=== PATIENT | male | born 1975 | race Caucasian/White ===

== ENCOUNTER → 2016-12-20 | Outpatient (CLI) | payer BC ==
--- NOTE | 2016-12-21 17:28 | CONS ---
REASON FOR CONSULTATION: Sleep apnea. This is a 41-year-old male patient coming in for sleep quality, increased snoring, loud snoring and increased sleepiness. His ypyosp-ry-qeh, Mr. Collins Matta, who has been taking him to various golfing trips, has noted that the patient has been snoring loudly and he has been having prolonged apneic events. As such, the possibility of sleep apnea was raised and he was referred to me. He goes to bed somewhere between 10:30 and 11 p.m., wakes up between 5:30 and 6: 30 a.m. in the morning. He averages around 5 to 6 hours of sleep at night. He is tired and fatigued during the day. He works in [place] at [employer] and he drives from [place] to [place] on a daily basis. He has never fallen asleep behind the wheel, yet he can easily fall asleep if he is sitting on the passenger side and staying inactive. During meetings and other day-to-day activities he stays awake, although he tried to fight his sleepiness. He has no substance abuse, no alcoholism. No excessive intake of caffeinated beverages. His weight has been fluctuating. More recently it is up by 30 to 35 pounds. He has been diagnosed having ADD, maintained on Ritalin for at least 8 years. He is on Lexapro for history of depression. No restlessness in the lower extremities. He has occasional grinding of the teeth. No nocturnal heartburn. No nocturnal shortness of breath. No other complaints otherwise. PAST MEDICAL HISTORY: 1. Obesity. 2. ADD. 3. Depression. SURGICAL HISTORY: Surgery on his head for fractured skull with subsequent revision. ALLERGIES: NOTE KNOWN. Outpatient medications include: 1. Ritalin SR 20 mg twice a day. 2. Lexapro 10 mg p.o. daily. SOCIAL HISTORY: No smoking. No history of alcoholism. No history of IV drugs. FAMILY HISTORY: Negative for sleep apnea. REVIEW OF SYSTEMS: Twelve-point review of systems was done. Positive findings were all mentioned above in the history of present illness. His current vitals signs are BP 134/96, pulse 86, respiration 16, temperature 98.4, saturation 94% on room air. Neck size 18 inches. Weight 261. Height is ( ). GENERAL APPEARANCE: Calm and comfortable. HEENT: Mallampati class 4. No micrognathia. No retrognathia. No tonsillar enlargement. There is significant crowding of the posterior pharynx. LUNGS: Clear to auscultation. HEART: Sounds regular rate and rhythm. Normal S1, S2. No S3, S4. No murmurs. ABDOMEN: Soft, non-tender. No organomegaly. EXTREMITIES: No edema. No cyanosis or clubbing. IMPRESSION: 1. Hypersomnia; Philadelphia Score of 12 with suspected obstructive sleep apnea based on history of snoring and witnessed apneas. Will investigate this further by screening polysomnogram. 2. Obesity; BMI of 35.2. 3. Hypersomnia; Philadelphia Score of 12. 4. Attention deficit disorder, on Ritalin. 5. Depression. PLAN: 1. PSG. 2. Weight loss. 3. Continue on Ritalin and Lexapro. 4. Will follow. [facility]
== END ==
LOC: SLEEP 17:00
PROVIDERS: ATTEND Internal Medicine Critical Care Medicine
DX: G47.10 Hypersomnia, unspecified (principal); E66.9 Obesity, unspecified; F98.8 Other specified behavioral and emotional disorders with onset usually occurring in childhood and adolescence; F32.9 Major depressive disorder, single episode, unspecified; Z68.35 Body mass index [BMI] 35.0-35.9, adult; Z79.899 Other long term (current) drug therapy
CPT/HCPCS: 99211

== ENCOUNTER → 2019-05-27 | Outpatient (CLI) | payer BC ==
--- NOTE | 2019-05-27 16:39 | XR ---
EXAMINATION TYPE: XR elbow complete RT DATE OF EXAM: 05/27/2019 CLINICAL HISTORY: Right elbow pain after fall injury. TECHNIQUE: Frontal, lateral and oblique images of the right elbow are obtained. COMPARISON: None FINDINGS: There is no acute fracture/dislocation evident in the right elbow. No abnormal fat pad si gns are seen. The overlying soft tissue appears unremarkable. IMPRESSION: There is no acute fracture or dislocation in the right elbow.
== END | disposition home or self-care (01) ==
LOC: RADXRMAIN 14:26
PROVIDERS: ATTEND Internal Medicine
DX: M25.521 Pain in right elbow (principal)

== ENCOUNTER → 2020-09-18 | Outpatient (CLI) | payer BC ==
--- NOTE | 2020-09-18 08:46 | CT ---
EXAMINATION TYPE: CT soft tissue neck w con DATE OF EXAM: 09/18/2020 COMPARISON: None HISTORY: Nodule on neck CT DLP: 667.8 mGycm CONTRAST: CT scan of the neck is performed with IV Contrast, patient injected with 100 mL of Isovue 300. Contrast enhanced CT of the neck was performed from the skull base through the lung apices. At the site of clinical concern which corresponds to the base of the right neck there are 2 small nor mal-appearing lymph nodes measuring less than 1 cm each. AIRWAY: The supraglottic, glottic, and subglottic portions of the airway appear patent and free of mass. SALIVARY GLANDS: The submandibular and parotid glands are free of mass or inflammatory process. THYROID GLAND: No nodules or masses seen. LYMPH NODES: No adenopathy seen greater than 1cm. LUNG APICES: No nodule or mass is seen. OTHER: Vascular structures are patent. No significant degenerative change of the cervical spine. N o abscess seen. IMPRESSION: No significant abnormality appreciated.
== END | disposition home or self-care (01) ==
LOC: RADCTMAIN 07:34
PROVIDERS: ATTEND Internal Medicine
DX: R22.1 Localized swelling, mass and lump, neck (principal)
CPT/HCPCS: 70491; Q9967

== ENCOUNTER → 2021-07-01 | Outpatient (CLI) | payer BC ==
--- NOTE | 2021-07-01 15:22 | XR ---
Right shoulder HISTORY: M 25.511, pain since March 03 views of the right shoulder Distal acromial spur is suspected. There is hypertrophic change at the acromioclavicular joint, dista l acromion slightly downturned. Bone mineralization, joint spaces and alignment are maintained. No fr acture or dislocation. IMPRESSION: Correlate for possible impingement. Shoulder MRI may be of benefit.
== END | disposition home or self-care (01) ==
LOC: RADXRMAIN 14:11
PROVIDERS: ATTEND Internal Medicine
DX: M25.511 Pain in right shoulder (principal)

== ENCOUNTER → 2021-11-30 | Outpatient (CLI) | payer BC ==
--- NOTE | 2021-12-01 08:22 | MR ---
EXAMINATION TYPE: MR shoulder RT wo con DATE OF EXAM: 11/30/2021 COMPARISON: Plain film 06/20/2021 HISTORY: Right shoulder pain for 6 months. TECHNIQUE: Multiplanar, multisequence imaging of the right shoulder is performed without contrast. FINDINGS: Rotator Cuff: There is abnormal signal associated with the rotator cuff insertion, abnormal thickenin g of the rotator cuff, small partial tear of the rotator cuff, intrasubstance tear suspected along th e posterior aspect, sagittal image 24, coronal image #22 possible recurrent tear noted more anteriorl y, sagittal image #25, coronal image #16, there is some local inflammatory change, fluid signal noted Acromioclavicular Joint: Arthropathy changes present causing some mass effect on the musculotendinous junction of supraspinatus. There is a distal acromial spur present. Glenohumeral Joint: Intact Labrum: Superior labrum shows some abnormal increased signal as does the inferior labrum, coronal pearl ge #16, possible degenerative signal, there may be degenerative tear Biceps Tendon: The long head of biceps is in normal location within bicipital groove, some minimal fl uid signal present along the long head of biceps tendon. Bone marrow signal: Probable pseudocysts present within the humeral head posteriorly Other: Some fluid signal is present in the musculotendinous junction region of the subscapularis, dif ficult to exclude ganglion cyst, axial image #15 series 201 IMPRESSION: Correlate for impingement, there is tendinosis, probable rotator cuff rim rent tear, partial tear as described, possible degenerative tear of the labrum. Acromioclavicular joint shows arthropathy change , there is some local inflammatory change, local edema present
== END | disposition home or self-care (01) ==
LOC: RADMRIMAIN 14:36
PROVIDERS: ATTEND Orthopaedic Surgery
DX: M19.011 Primary osteoarthritis, right shoulder (principal)

== ENCOUNTER → 2022-05-11 | Outpatient (CLI) | payer BC ==
--- NOTE | 2022-05-11 08:43 | CT ---
EXAMINATION TYPE: CT soft tissue neck w con DATE OF EXAM: 05/11/2022 COMPARISON: 09/18/2020 HISTORY: left sided lymph node enlargement CT DLP: 700.9 mGycm CONTRAST: Patient injected with 75 mL of Isovue 300. TECHNIQUE: Axial images at 3 mm thick sections. Reconstructed images in the coronal plane and sagitt al plane are reviewed. FINDINGS: Limited CT sections are obtained the lung apices. The lung apices appear clear. CT neck: The torus tubarius and fossa of Rosenmuller are normal. Fire Suppression Captain spaces are normal. Para nasal sinuses and mastoid air cells are clear. Parotid glands appear normal and symmetrical. Submandibular glands, are normal. Parapharyngeal spac es are normal. No suspicious adenopathy is evident. No suspicious enlarged left neck adenopathy is e vident. Largest one on the left measures 0.6 cm in the submandibular region. The hypopharynx appears within normal limits. Vocal cord level appear symmetrical. Thyroid as visualized is normal. Osseous structures appear unremarkable. Disc height and vertebral body heights are preserved. IMPRESSIONS: 1. No suspicious acute enlarged adenopathy
== END | disposition home or self-care (01) ==
LOC: RADCTMAIN 08:00
PROVIDERS: ATTEND Internal Medicine
DX: R22.1 Localized swelling, mass and lump, neck (principal)
CPT/HCPCS: 70491; Q9967

== ENCOUNTER → 2023-02-22 | Outpatient (CLI) | payer BC ==
--- NOTE | 2023-02-22 22:24 | US ---
EXAMINATION TYPE: US thyroid st tissue head/neck DATE OF EXAM: 02/22/2023 COMPARISON: NONE CLINICAL INDICATION: Male, 47 years old with history of R59.0 ENLARGED LYMPHNODES; Lump on left later al neck posterior to ear x 1 yr palpable area corresponds to hard, avascular, 1.5x1.1x0.5cm hypoechoic area compress IMPRESSION: Small lymph nodes within the neck at the area of concern. Vascularity however is not identified. Cons ider monitoring
== END | disposition home or self-care (01) ==
LOC: RADUSWWP 13:41
PROVIDERS: ATTEND Otolaryngology
DX: R59.0 Localized enlarged lymph nodes (principal)
CPT/HCPCS: 76536

== ENCOUNTER 2023-02-28 13:10 | Day surgery (SDC) | payer BC ==
[2023-02-28 14:08] VITALS: RESP 16; TEMP 98
--- NOTE | 2023-02-28 15:11 | US ---
ULTRASOUND GUIDED CORE BIOPSY LEFT NECK MASS: CLINICAL HISTORY: Left neck mass FINDINGS: The procedure was explained to the patient. The risks, complications, benefits and alternatives were discussed and any questions were answered. Informed consent was obtained. Patient was placed supin e on the ultrasound table and prepped and draped in the usual sterile fashion. Utilizing a 18 gauge core biopsy needle, 3 passes were made into the left neck mass. Patient was stable throughout the procedure. Pathology is pending. All elements of maximal barrier technique were utilized. IMPRESSION: 1. Successful ultrasound guided core biopsy left neck mass.
[2023-02-28 15:40] VITALS: BP 116/61; PULSE 76
== END 2023-02-28 14:20 | disposition home or self-care (01) ==
LOC: RADPROMAIN 13:10
PROVIDERS: ATTEND Otolaryngology
DX: R22.1 Localized swelling, mass and lump, neck (principal)
CPT/HCPCS: 38505; 76942; 88305

== ENCOUNTER 2023-04-12 09:52 | Day surgery (SDC) | payer BC ==
[~2023-04-12 09:52] MED LIST: DEXAMETHASONE SOD PHOSPHATE 4 MG/ML 1 ML VIAL IV ONE; FAMOTIDINE 20 MG/2 ML VIAL IV PRN; HYDROmorphone 0.5 MG/0.5 ML SYRINGE IVP PRN; LACTATED RINGERS 1,000 ML IV SCH; LIDOCAINE 1% (10MG/ML) FOR IV START INTRADERMA PRN; MIDAZOLAM 2 MG/2 ML VIAL IV PRN; ONDANSETRON 4 MG/2 ML VIAL IVP ONE; ceFAZolin 3 GM in SODIUM CHLORIDE 0.9% 100 ML IVPB PRN
[2023-04-12 10:39] VITALS: RESP 16
[2023-04-12] MEDS ORDERED: LIDOCAINE 1% INJ 10MG/ML (20 ML MDV) ONE (11:03)
[2023-04-12] MEDS ORDERED: SUCCINYLCHOLINE CHLORIDE 200 MG/10 ML VIAL IV ONE (11:03)
[2023-04-12] MEDS ORDERED: fentaNYL (PF) 50 MCG/ML 2 ML AMP ONE (11:03)
[2023-04-12] MEDS ORDERED: PROPOFOL 10 MG/ML 20 ML VIAL IV ONE (11:03)
[2023-04-12] MEDS ORDERED: LIDOCAINE 1%-EPI 1:100,000 50 ML VIAL SQ ONE ×2 (11:26→11:30)
[2023-04-12] MEDS ORDERED: BACITRACIN OINT 1 EACH PACKET TOPICAL ONE (11:34)
--- NOTE | 2023-04-12 11:56 | P.OP ---
Date of Procedure: 04/12/23 Preoperative Diagnosis: Left posterior triangle cervical lymph node Postoperative Diagnosis: Left posterior triangle Procedure(s) Performed: Excisional biopsy left posterior neck nodule 1.5 cm Anesthesia: BARRYA Surgeon: Arley Barraza Estimated Blood Loss (ml): 2 Pathology: other (Left cervical lymph node posterior triangle) Condition: stable Disposition: PACU Indications for Procedure: This is a 47-year-old white male with a persistent left posterior cervical lymph node. This was felt to be most likely benign however needle biopsy was nondiagnostic. Patient has elected to have this excised. Operative Findings: Patient had a left posterior triangle nodule which is overlying the upper sternocleidomastoid. This appeared more consistent with a lipoma the lymph node grossly but will be sent for evaluation even as lymph node regardless Description of Procedure: Patient brought in the operative suite and placed in a supine position. The patient underwent induction of general anesthesia with oral endotracheal patient without difficulty. The patient was prepped and draped in usual aseptic fashion. 1% lidocaine with [id number] epinephrine was infused subcutaneously in field block fashion. This was left for 7 minutes vasoconstrictive effect. Transverse cervical incision was made overlying this nodule and carried sharply through the skin and subcutaneous tissue to the nodule itself appeared more consistent with a lipoma than lymph node grossly. This was excised grossly entirely and this was all superficial to the sternocleidomastoid muscle. Once this was excised hemostasis was noted to be good and the wound was closed in the subcutaneous layer with inverted interrupted 4-0 Vicryl suture skin closed with running locking 4-0 Prolene suture. Bacitracin ointment sterile dressing were placed. Patient was allowed to emerge from general anesthesia having tolerated procedure well was extubated in the operating suite and was transferred to postop recovery area in satisfactory condition.
[2023-04-12 12:22] VITALS: TEMP 96.9
[2023-04-12 13:14] VITALS: BP 128/75; PULSE 75
== END 2023-04-12 13:20 | disposition home or self-care (01) ==
LOC: OR 09:52
PROVIDERS: ATTEND Otolaryngology
DX: R59.0 Localized enlarged lymph nodes (principal); G47.33 Obstructive sleep apnea (adult) (pediatric); E66.9 Obesity, unspecified; Z79.899 Other long term (current) drug therapy; Z98.890 Other specified postprocedural states; Z68.41 Body mass index [BMI] 40.0-44.9, adult
CPT/HCPCS: 21550; 88305; 88307; C1763; J0330; J1100; J0690; J2405; J2001; J3010; J3490; J2704

== ENCOUNTER → 2023-11-15 | Outpatient (CLI) | payer BC ==
--- NOTE | 2023-11-20 09:00 | US ---
EXAMINATION TYPE: US thyroid st tissue head/neck DATE OF EXAM: 11/15/2023 COMPARISON: NONE CLINICAL INDICATION: Male, 48 years old with history of R22.1 LOCALIZED SWELLING, MASS AND LUMP, NECK ; Pt had area on left lateral neck that was removed 04/04/24. Scanned over scar, hypoechoic area seen measuring 1.1cm without vascularity. ? scar tissue. There is a smaller anechoic area seen adjacent to that measuring 0.5cm IMPRESSION: Probable scar tissue is noted as indicated above without distinct mass. Small residual lesion difficu lt to exclude. Consider CT if felt to be indicated.
== END | disposition home or self-care (01) ==
LOC: RADUSWWP 16:31
PROVIDERS: ATTEND Otolaryngology
DX: R22.1 Localized swelling, mass and lump, neck (principal)
CPT/HCPCS: 76536

== ENCOUNTER 2024-05-10 08:48 | Day surgery (SDC) | payer BC ==
[~2024-05-10 08:48] MED LIST changes: -DEXAMETHASONE SOD PHOSPHATE 4 MG/ML 1 ML VIAL IV ONE; -FAMOTIDINE 20 MG/2 ML VIAL IV PRN; -LACTATED RINGERS 1,000 ML IV SCH; -LIDOCAINE 1% (10MG/ML) FOR IV START INTRADERMA PRN; -MIDAZOLAM 2 MG/2 ML VIAL IV PRN; -ONDANSETRON 4 MG/2 ML VIAL IVP ONE; +SCOPOLAMINE 1 MG/72 HR PATCH TRANSDERM ONE; -ceFAZolin 3 GM in SODIUM CHLORIDE 0.9% 100 ML IVPB PRN
[2024-05-10] MEDS: IV FLUID CONTINUATION 1,000 ML IV ONE ×3 (09:11→13:36)
[2024-05-10 09:16] VITALS: RESP 16
[2024-05-10] MEDS: ACETAMINOPHEN TAB 500 MG TAB PO PRN (09:18)
[2024-05-10] MEDS: DEXAMETHASONE SOD PHOSPHATE 4 MG/ML 1 ML VIAL IV ONE (09:19)
[2024-05-10] MEDS: LACTATED RINGERS 1,000 ML IV SCH (09:19)
[2024-05-10] MEDS: ONDANSETRON 4 MG/2 ML VIAL IVP ONE (09:19)
[2024-05-10] MEDS: MIDAZOLAM 2 MG/2 ML VIAL IV PRN (09:50)
[2024-05-10] MEDS: HEPARIN SODIUM,PORCINE 5,000 UNIT/ML 1 ML VIAL SQ PRN (10:06)
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
[2024-05-10] MEDS: ceFAZolin 3 GM in SODIUM CHLORIDE 0.9% 100 ML IVPB PRN (11:06)
[2024-05-10] MEDS ORDERED: ROCURONIUM 10 MG/ML (5 ML VIAL) IV ONE (11:09)
[2024-05-10] MEDS ORDERED: SODIUM CHLORIDE 0.9% (PF) 10 ML VIAL ONE (11:09)
[2024-05-10] MEDS ORDERED: fentaNYL (PF) 50 MCG/ML 2 ML AMP ONE (11:09)
[2024-05-10] MEDS ORDERED: ROPIVACAINE 5 MG/ML 30 ML VIAL ONE (11:09)
[2024-05-10] MEDS ORDERED: PROPOFOL 10 MG/ML 20 ML VIAL IV ONE (11:09)
[2024-05-10] MEDS ORDERED: MIDAZOLAM 2 MG/2 ML VIAL ONE (11:09)
[2024-05-10] MEDS ORDERED: KETOROLAC 15 MG/ML 1 ML VIAL ONE (11:09)
[2024-05-10] MEDS ORDERED: GLYCOPYRROLATE 0.2 MG/ML 2 ML VIAL ONE (11:09)
[2024-05-10] MEDS ORDERED: DEXAMETHASONE SOD PHOSPHATE 4 MG/ML 1 ML VIAL ONE (11:09)
[2024-05-10] MEDS ORDERED: SUCCINYLCHOLINE CHLORIDE 200 MG/10 ML VIAL IV ONE (11:09)
[2024-05-10] MEDS ORDERED: HYDROmorphone (PF) 1 MG/ML ONE (11:09)
[2024-05-10] MEDS ORDERED: LIDOCAINE 1% INJ 10MG/ML (20 ML MDV) ONE (11:09)
[2024-05-10] MEDS ORDERED: NEOSTIGMINE 1 MG/ML 10 ML VIAL ONE (11:09)
--- NOTE | 2024-05-10 11:28 | P.ANPRN ---
Procedure Note - Anesthesia - Nerve Block Performed Bilateral Erector Spinae Single Time Out Performed: Yes ([id number]) Date of Procedure: 05/10/24 Location of Patient: PreOp Indication: Acute Post-Operative Pain, Dx/Pain Location, Requested by Surgeon Specifically requested for management of pain by DrChucky: Alonso Kim Sedation Type: Sedate with meaningful contact maintained Preparation: Sterile Prep Position: Prone Needle Types: Pajunk Needle Gauge: 21 Ultrasound used to visualize needle placement: Yes Ultrasound used to observe medication spread: Yes Injectate: 0.5% Ropivacaine (see comment for volume) (20 mL +10 mL of normal saline fluids = 4mg of Decadron on each side) Blood Aspirated: No Pain Paresthesia on Injection Noted: No Resistance on Injection: Normal Image Stored and Saved: Yes Events: Uneventful and Well Tolerated
[2024-05-10] MEDS: BUPIVACAINE (PF) 0.25% 30 ML VIAL SQ ONE ×2 (11:34)
--- NOTE | 2024-05-10 12:15 | P.OP ---
Date of Procedure: 05/10/24 Procedure(s) Performed: PREOPERATIVE DIAGNOSIS: Incarcerated umbilical hernia POSTOPERATIVE DIAGNOSIS: Same PROCEDURE: Open repair and cursory umbilical hernia with mesh, partial omentectomy SURGEON: Dr. Kim ANESTHESIA: General EBL: 10 cc OPERATIVE PROCEDURE DETAILS: The patient was placed in the operating table in the supine position. A left sided periumbilical incision was made using the scalpel. The subcutaneous tissues were dissected bluntly and with cautery. The hernia sac was identified. The umbilical attachments to the fascia were divided using electrocautery. The hernia sac opened and later excised. The patient had a moderate amount of omentum that was adherent to the hernia sac which was lysed and a good portion of the omentum was excised using 3-0 silk ties. The remainder of the omentum was able to be reduced back into the peritoneal cavity. The peritoneal defect was closed using a running locking 3-0 Vicryl suture. The defect size was 1.8 x 1.1 cm. The fat overlying the fascia was dissected. No additional defects were seen. The preperitoneal space was then dissected using blunt dissection and electrocautery. The 4.3 cm ventral ex mesh was placed beneath the fascia and sutured in place using trans-fascial 0 Ethibond sutures. The defect was closed using interrupted vest over pants 0 Ethibond mattress sutures. The subcutaneous tissues were reapproximated using inverted 2-0 & 3-0 Vicryl sutures. The umbilicus was tacked back down to the fascia using a 2-0 Vicryl suture. The skin was closed using 4-0 Monocryl sutures. Skin glue and sterile dressings were then applied. HERNIA CHARACTERISTICS: Length: 1.1 cm Width: 1.8 cm Type: Incarcerated umbilical TYPE OF MESH USED: 4.3 cm Ventralex LOCATION OF MESH: [place]ublay FIXATION: 0 Ethibond PREOPERATIVE DISCUSSION ON SMOKING CESSASTION: Yes PREOPERATIVE DISCUSSION ON MORBID OBESITY: Yes PREOPERATIVE DISCUSSION ON APPROPRIATE USE OF NARCOTIC USE: Yes PREOPERATIVE EDUCATION: Multi Modal, Smoking Cessation and Weight Loss with BMI over 35. DISPOSITION: Stable to recovery room
[2024-05-10 12:36] VITALS: TEMP 98
[2024-05-10 14:16] VITALS: BP 127/81
[2024-05-10 14:20] VITALS: PULSE 88
[2024-05-10 14:44] LABS: Glucose,Whole Blood 118 mg/dL (70-110)
[2024-05-10] MEDS ORDERED: ACETAMINOPHEN TAB 325 MG TAB PO SCH (15:00)
[2024-05-10] MEDS ORDERED: IBUPROFEN 600 MG TAB PO SCH (18:00)
== END 2024-05-10 14:51 | disposition home or self-care (01) ==
LOC: OR 08:48
PROVIDERS: ATTEND Surgery
DX: K42.0 Umbilical hernia with obstruction, without gangrene (principal); K76.0 Fatty (change of) liver, not elsewhere classified; G47.33 Obstructive sleep apnea (adult) (pediatric); F32.9 Major depressive disorder, single episode, unspecified; Z90.49 Acquired absence of other specified parts of digestive tract; Z80.0 Family history of malignant neoplasm of digestive organs; Z79.899 Other long term (current) drug therapy; Z99.89 Dependence on other enabling machines and devices
CPT/HCPCS: 64999; 49592; C1781; J2250; J0330; J1644; J1100; J2710; J0690; J2405; J2003; J3010; J1171; J2795; J1885; J2704; J0665; J1596; 88305